=== PATIENT | female | born 1940 | race Caucasian/White ===

== ENCOUNTER 2021-10-23 08:01 | Day surgery (SDC) | payer MEDICARE, OTHER ==
[~2021-10-23] VITALS: Ht 167.6 cm; Wt 70.1 kg
[~2021-10-23 08:01] MED LIST: ALPR.5 PO; ASPI81CH PO; ATEN25 PO; CITA20 PO; CLON.2 PO; MULVITMIND PO; PRAV10 PO; ZOLM5 PO
[2021-10-23] MEDS ORDERED: FISH OIL 1,2001 EAC4 (08:37)
[2021-10-23] MEDS ORDERED: DULO30 (08:37)
[2021-10-23] MEDS ORDERED: OXYB5 (08:38)
== END 2021-10-23 10:31 | disposition home or self-care (01) ==
LOC: ORSCSDS 08:01
PROVIDERS: Internal Medicine Gastroenterology
PROC: 0D757ZZ Dilation of Esophagus, Via Natural or Artificial Opening (ICD-10-PCS; principal; 2021-10-23 09:15)
PROC: 0DB98ZX Excision of Duodenum, Via Natural or Artificial Opening Endoscopic, Diagnostic (ICD-10-PCS; principal; 2021-10-23 09:15)
PROC: 0DB58ZX Excision of Esophagus, Via Natural or Artificial Opening Endoscopic, Diagnostic (ICD-10-PCS; principal; 2021-10-23 09:15)
PROC: 0DBH8ZX Excision of Cecum, Via Natural or Artificial Opening Endoscopic, Diagnostic (ICD-10-PCS; principal; 2021-10-23 09:15)
DX: R13.10 Dysphagia, unspecified (principal); D12.0 Benign neoplasm of cecum; K21.9 Gastro-esophageal reflux disease without esophagitis; R63.4 Abnormal weight loss; K57.30 Diverticulosis of large intestine without perforation or abscess without bleeding; F32.A Depression, unspecified; E78.5 Hyperlipidemia, unspecified; Z79.899 Other long term (current) drug therapy; Z87.891 Personal history of nicotine dependence
CPT/HCPCS: 88305; J2704; J7120

== ENCOUNTER 2022-03-17 12:20 | Day surgery (SDC) | payer MEDICARE, OTHER ==
[~2022-03-17] VITALS: Ht 167.6 cm; Wt 68.3 kg
[~2022-03-17 12:20] MED LIST changes: +DULO30; +FISH OIL 1,2001 EAC4; +Norco 5-325 Ta1 EACH PO; +OXYB5
--- NOTE | 2022-03-17 13:38 | NUR ---
PT AMBULATES TO [facility] c STEADY GAIT. History, Chart, Medications and Allergies reviewed before start of procedure. Lungs clear T/O to Auscultation. Patient confirms NPO status and agrees with scheduled surgery. Splint in place. Glasses in belongings bag.
--- NOTE | 2022-03-17 14:17 | NUR ---
REPORT FROM RADHAMES SINGH RN. PT RESTING COMFORTABLY IN BED, WAITING FOR PROCEDURE. AXOX4, REPOSITIONS SELF IN BED.
--- NOTE | 2022-03-17 17:43 | NUR ---
INTO STEP RECIEVED REPORT VSS. GIVEN ICE WATER PER REQUEST. DRESSING INTACT AND ICE BAGW IN PLACE ON RIGHT FOREARM.
--- NOTE | 2022-03-17 18:33 | NUR ---
GETTING DRESSED AT THIS TIME. VSS RATES PAIN SLIGHTLY BETTER AT 8/10 WHICH IS AN IMPROVEMENT. Discharge instructions reviewed with patient. Patient verbalizes understanding. Copy given to patient to take homE. Discharged via wheelchair to private car for ride home.
== END 2022-03-17 23:54 | disposition home or self-care (01) ==
LOC: ORSCMMR 12:20 → ORD 13:45 → ORSCMMR 23:54
PROVIDERS: Orthopaedic Surgery
PROC: 0PSH04Z Reposition Right Radius with Internal Fixation Device, Open Approach (ICD-10-PCS; principal; 2022-03-17 13:45)
DX: S52.551A Other extraarticular fracture of lower end of right radius, initial encounter for closed fracture (principal); W18.30XA Fall on same level, unspecified, initial encounter; Z79.899 Other long term (current) drug therapy
CPT/HCPCS: 73100; A9270; C1713; J0690; J1100; J2250; J2405; J2704; J2795; J3010; J7120

== ENCOUNTER → 2022-05-15 | Outpatient (CLI) | payer MEDICARE, OTHER ==
[~2022-05-15] MED LIST changes: +BUSPIRONE HCL7.5 M1; +CIPR500 PO; +DICY20 PO; +DULO60 PO; +FAMO20 PO; +METR500 PO; +Prinivil10 MG PO
[2022-05-15 11:05] LABS: BASOPHILS ABSOLUTE AUTO 0.04 K/mm3 (0.00-0.23); BASOPHILS PERCENT AUTO 1 % (0-2); Hematocrit 41.8 % (33.0-51.0); Hemoglobin 14.4 g/dL (11.5-16.0); LYMPHOCYTES ABSOLUTE AUTO 0.48 K/mm3 (0.84-5.20); LYMPHOCYTES PERCENT AUTO 5 % (21-46); MONOCYTES PERCENT AUTO 8 % (4-13); Mean Corpuscular HGB 30.6 pg (26.0-34.0); Mean Corpuscular HGB Conc 34.4 g/dL (31.5-36.5); Mean Corpuscular Volume 89 fL (80-100); Platelet Count 256 K/mm3 (150-400); RDW Coefficient Variation 13.3 % (11.7-14.2); RDW Standard Deviation 43.6 fL (35.1-46.3); Red Blood Cell Count 4.71 M/mm3 (3.80-5.20); White Blood Cell Count 8.86 K/mm3 (4.00-11.30)
[2022-05-15 11:10] LABS: EOSINOPHILS ABSOLUTE AUTO 0.03 K/mm3 (0.00-0.68); EOSINOPHILS PERCENT AUTO 0 % (0-6); IMMATURE GRAN ABSOLUTE AUTO 0.02 K/mm3 (0.00-0.10); IMMATURE GRAN PERCENT AUTO 0 % (0-1); NEUTROPHILS ABSOLUTE AUTO 7.59 K/mm3 (1.96-9.15); NEUTROPHILS PERCENT AUTO 86 % (41-73)
[2022-05-15 11:24] LABS: Albumin, Blood 3.1 g/dL (3.4-5.0); Albumin/Globulin Ratio 0.8 (0.8-1.8); Bilirubin, Total 0.5 mg/dL (0.1-1.0); Bun/Creatinine Ratio 15.1 (12.0-20.0); Creatinine, Blood 0.86 mg/dL (0.40-1.00); Globulin, Blood 3.7 g/dL (2.2-4.0); Potassium, Blood 3.8 mmol/L (3.5-5.5); Total Protein, Blood 6.8 g/dL (6.4-8.2)
[2022-05-15 11:50] LABS: BAND PERCENT MAN 11 % (0-8); BASOPHILS PERCENT MAN 0 % (0-2); EOSINOPHILS PERCENT MAN 0 % (0-6); LYMPHOCYTES PERCENT MAN 8 % (21-46); MONOCYTES ABSOLUTE MAN 0.44 K/mm3 (0.16-1.47); MONOCYTES PERCENT MAN 5 % (4-13); SEG NEUTROPHILS PERCENT MAN 76 % (41-73); TOTAL CELLS COUNTED 100
== END | disposition home or self-care (01) ==
LOC: LAB SHORT 10:58
PROVIDERS: Physician Assistant Medical
DX: R10.84 Generalized abdominal pain (principal)
CPT/HCPCS: 80053; 83605; 85025